=== PATIENT | female | born 1985 | race Caucasian/White ===

== ENCOUNTER 2016-07-20 09:53 | Emergency (ER) | payer OTHER ==
[~2016-07-20] VITALS: Ht 160 cm; Wt 76.7 kg
[~2016-07-20 09:53] MED LIST: ALAVERT10 MG PO; ALEVE220 M2 PO; ALEVE220 MG PO; AUGMENTIN500 MG PO; BACTRIM,SEPT1 TABLET PO; BENTYL10 MG PO; BIOFREEZE TP; CIPRO500 MG PO; CLINDAMYCIN HC300 MG PO; COLACE100 MG PO; CONSTULOSE10 GM/15 M PO; CYCLOBENZAPR TAB 10M; Ceftin PO; Cipro PO; Claritin,Alavart PO; DEPO-PROVER150 MG/ML; DEPO-PROVER150 MG/ML IM; DIFLUCAN150 MG PO; DOCUSATE SODIU100 MG PO; Diflucan PO; ELAVIL25 MG PO; ENDOCET 5-3251 EACH PO; ERYTHROMYCIN O3.5 GM LEFT EYE; FEOSOL325 MG PO; FIORICET,ESG1 TABLET PO; FLEXERIL10 MG PO; FLEXERIL5 MG PO; FLINTSTONES1 TABLET PO; Feosol PO; GABAPENTIN300 MG PO; HUMALOG (UNIT)1 UNIT SC; HUMALOG100 UNIT/1 SC; HUMULIN NP100 UNIT/1 SC; IBUPROFEN800 MG; INSULIN PUMP SCCONT; IRON325 M1 PO; KEFLEX500 MG PO; LANTUS 10100 UNITS/ SC; LANTUS 3 M100 UNITS1 SC; LORATADINE10 M2; Lantus 3 ml Solostar SC; Levaquin PO; Lopressor PO; MACROBID100 MG PO; MEDROXYPRO150 MG/1 M; MOTRIN600 MG PO; MOTRIN800 MG PO; NAPROSYN500 MG PO; NAPROXEN500 MG PO; NEURONTIN300 MG PO; NEXPLANON68 MG SC; NORCO 5/3251 TABLET PO; NOVOLIN N100 UNITS/ IM; NOVOLIN N100 UNITS/ SQ; NOVOLIN NPH,HU1 UNIT SC; NOVOLIN R100 UNIT/1 IM; NOVOLIN,HU100 UNITS1 SC; NOVOLOG 10100 UNITS/; NOVOLOG 10100 UNITS/ SC; NOVOLOG PE100 UNITS/; NOVOLOG PE100 UNITS/ SC; PEN-VEE K,VEET500 MG PO; PERCOCET 5/31 TABLET PO; PHENERGAN12.5 MG PR; PHILLIPS' LAXA100 MG PO; PREFERA-OB P1 TABLET PO; PRILOSEC40 MG PO; PROMETHAZINE HC25 M1 PO; PROTONIX40 MG PO; PROZAC20 MG PO; Percocet 5/325,Endoc PO; REGLAN10 MG PO; SENNA PLUS TAB1 EACH PO; Senokot S,Pericolace PO; TORADOL10 MG PO; TRAMADOL HCL50 MG; TRAMADOL HCL50 MG PO; TYLENOL #3; Toprol XL PO; ULTRAM50 MG PO; UNISOM SLEEP AI25 MG; UNISOM SLEEP AI25 MG PO; UNISOM25 MG PO; UNISOM50 MG PO; ZOFRAN ODT4 MG PO; ZOFRAN ODT8 MG PO; ZOFRAN4 MG PO; ZOLOFT25 MG PO
[2016-07-20] MEDS ORDERED: UNISOM50 MG PO (10:18)
[2016-07-20] MEDS ORDERED: LANTUS 3 M100 UNITS1 SC (10:18)
[2016-07-20] MEDS ORDERED: NOVOLOG PE100 UNITS/ SC (10:18)
[2016-07-20 10:35] LABS: ADD MIUA? YES; BILIRUBIN NEGATIVE; BLOOD MODERATE; COLOR YELLOW ((YELLOW)); GLUCOSE (STRIP) >=1000; KETONES NEGATIVE; LEUKOCYTES NEGATIVE; NITRITE NEGATIVE; PROTEIN (STRIP) 30; SPECIFIC GRAVITY 1.025 (1.000-1.030); UROBILINOGEN 0.2 MG/DL (0.2-1.0)
[2016-07-20 10:50] LABS: BACTERIA 1+; CASTS NONE SEEN /LPF; CRYSTALS NONE SEEN; EPITHELIAL CELLS 1+; MUCUS NONE SEEN; RED BLOOD CELLS 0-5 /HPF (0-5); UCUL ADDED? NO; WHITE BLOOD CELLS 0-5 /HPF (0-5)
[2016-07-20 11:00] LABS: EOSINOPHIL (%) 0.5 % (0-5); HEMATOCRIT 36.4 % (36.0-46.0); IMMATURE GRANULOCYTE (%) 0.2 % (0.0-0.7); IMMATURE GRANULOCYTE COUNT 0.1 K/uL; LYMPHOCYTE COUNT 1.7 K/uL (1.0-2.8); MCH 28.1 PG (29.0-34.0); MCHC 33.2 G/DL (30.0-36.0); MCV 84.5 FL (83-99); MEAN PLAT.VOLUME 11.2 uM^3 (9.5-12.4); MONOCYTE (%) 6.1 % (3-12); MONOCYTE COUNT 0.4 K/uL (0-0.8); NEUTROPHIL (%) 64.9 % (45-76); NEUTROPHIL COUNT 3.9 K/uL (1.8-6.4); PLATELET COUNT 222 K/uL (156-360); RBC DIS.WIDTH-CV 12.1 % (11.8-14.6); RBC DIS.WIDTH-SD 36.6 % (39-53); RED BLOOD COUNT 4.31 M/uL (3.80-5.20); WHITE BLOOD COUNT 6.1 K/uL (4.1-10.2)
[2016-07-20 11:07] LABS: GLUCOSE 245 mg/dL (70-99)
[2016-07-20 11:11] LABS: D-DIMER ELISA 0.36 mg/L FEU (< 0.57); GFR ESTIMATE (CALCULATED) > 59 mL/min/
[2016-07-20 11:12] LABS: UREA NITROGEN (BUN) 12 mg/dL (9-23)
[2016-07-20 11:15] LABS: CHLORIDE 107 mEq/L (99-109); POTASSIUM 3.9 mEq/L (3.7-5.4); SODIUM 136 mEq/L (136-147)
[2016-07-20 11:18] LABS: ANION GAP 10 MEQ/L (2-14); TROP-I INTERPRETATION NEGATIVE; TROPONIN-I < 0.01 ng/mL (0.0-0.30)
[2016-07-20] MEDS ORDERED: TYLENOL WITH C1 EACH PO (13:37)
[2016-07-20 13:49] VITALS: BP 113/89
== END 2016-07-20 13:54 | disposition home or self-care (01) ==
LOC: EME 09:53
PROVIDERS: Emergency Medicine
DX: R10.9 Unspecified abdominal pain (principal); R07.89 Other chest pain; M54.5 Low back pain; R11.2 Nausea with vomiting, unspecified; E11.9 Type 2 diabetes mellitus without complications; Z79.4 Long term (current) use of insulin; Z96.41 Presence of insulin pump (external) (internal); Z87.440 Personal history of urinary (tract) infections
CPT/HCPCS: 71010; 74176; 80048; 81003; 84484; 85025; 85379; 93005; 99281; 99285

== ENCOUNTER 2016-09-04 08:57 | Emergency (ER) | payer OTHER ==
[~2016-09-04] VITALS: Ht 160 cm; Wt 77.6 kg
[~2016-09-04 08:57] MED LIST changes: +TYLENOL WITH C1 EACH PO
[2016-09-04] MEDS ORDERED: FLEXERIL10 MG PO (09:47)
[2016-09-04] MEDS ORDERED: NAPROSYN500 MG PO (09:47)
[2016-09-04 10:09] VITALS: BP 136/89
== END 2016-09-04 10:10 | disposition home or self-care (01) ==
LOC: EME 08:57
DX: G56.01 Carpal tunnel syndrome, right upper limb (principal); E11.9 Type 2 diabetes mellitus without complications; Z91.040 Latex allergy status
CPT/HCPCS: 99281; 99283

== ENCOUNTER 2016-09-25 09:14 | Emergency (ER) | payer OTHER ==
[~2016-09-25] VITALS: Ht 160 cm; Wt 76.2 kg
[2016-09-25 10:27] LABS: HEMATOCRIT 35.8 % (36.0-46.0); MCH 27.9 PG (29.0-34.0); MCHC 33.5 G/DL (30.0-36.0); MCV 83.3 FL (83-99); MEAN PLAT.VOLUME 11.1 uM^3 (9.5-12.4); PLATELET COUNT 247 K/uL (156-360); RBC DIS.WIDTH-CV 11.5 % (11.8-14.6); RBC DIS.WIDTH-SD 34.7 % (39-53); WHITE BLOOD COUNT 7.4 K/uL (4.1-10.2)
[2016-09-25 10:41] LABS: CHLORIDE 104 mEq/L (99-109); POTASSIUM 4.6 mEq/L (3.7-5.4); SODIUM 134 mEq/L (136-147)
[2016-09-25 10:43] LABS: GLUCOSE 287 mg/dL (70-99)
[2016-09-25 10:44] LABS: ANION GAP 10 MEQ/L (2-14)
[2016-09-25 10:45] LABS: TOTAL BILIRUBIN 0.4 mg/dL (0.0-1.0)
[2016-09-25 10:47] LABS: ALKALINE PHOSPHATASE 89 IU/L (3-129); GFR ESTIMATE (CALCULATED) > 59 mL/min/
[2016-09-25 10:48] LABS: UREA NITROGEN (BUN) 15 mg/dL (9-23)
[2016-09-25 10:50] LABS: LIPASE 60 U/L (1.0-51.0)
[2016-09-25 10:57] LABS: QUANTITATIVE HCG < 4.0 MIU/ML
[2016-09-25] MEDS ORDERED: PERCOCET 5/31 TABLET PO (13:47)
[2016-09-25] MEDS ORDERED: ZOFRAN ODT4 MG PO (13:47)
[2016-09-25 14:08] VITALS: BP 147/91
== END 2016-09-25 14:20 | disposition home or self-care (01) ==
LOC: EME 09:14
DX: K80.20 Calculus of gallbladder without cholecystitis without obstruction (principal); E11.9 Type 2 diabetes mellitus without complications; Z87.440 Personal history of urinary (tract) infections; Z79.4 Long term (current) use of insulin
CPT/HCPCS: 76705; 80053; 81003; 83690; 84702; 85027; 93005; 99281; 99285; J2270; J2405; J3010; J7030

== ENCOUNTER 2016-09-30 17:45 | Emergency (ER) | payer OTHER ==
[~2016-09-30] VITALS: Ht 167.6 cm; Wt 77.2 kg
[2016-09-30 19:11] LABS: EOSINOPHIL (%) 0.5 % (0-5); HEMATOCRIT 36.7 % (36.0-46.0); IMMATURE GRANULOCYTE (%) 0.3 % (0.0-0.7); INSTRUMENT ABS NEUTROPHIL CT 4.1 K/uL; LYMPHOCYTE COUNT 1.8 K/uL (1.0-2.8); MCH 28.2 PG (29.0-34.0); MCHC 32.7 G/DL (30.0-36.0); MCV 86.2 FL (83-99); MEAN PLAT.VOLUME 10.5 uM^3 (9.5-12.4); MONOCYTE COUNT 0.3 K/uL (0-0.8); NEUTROPHIL (%) 65.7 % (45-76); NEUTROPHIL COUNT 4.1 K/uL (1.8-6.4); PLATELET COUNT 247 K/uL (156-360); RBC DIS.WIDTH-CV 11.9 % (11.8-14.6); RBC DIS.WIDTH-SD 37.2 % (39-53); RED BLOOD COUNT 4.26 M/uL (3.80-5.20); WHITE BLOOD COUNT 6.2 K/uL (4.1-10.2)
[2016-09-30 19:25] LABS: CHLORIDE 108 mEq/L (99-109); POTASSIUM 4.4 mEq/L (3.7-5.4); SODIUM 138 mEq/L (136-147)
[2016-09-30 19:27] LABS: GLUCOSE 120 mg/dL (70-99)
[2016-09-30 19:29] LABS: ANION GAP 10 MEQ/L (2-14)
[2016-09-30 19:30] LABS: TOTAL BILIRUBIN 0.2 mg/dL (0.0-1.0)
[2016-09-30 19:31] LABS: GFR ESTIMATE (CALCULATED) > 59 mL/min/
[2016-09-30 19:32] LABS: ALKALINE PHOSPHATASE 121 IU/L (3-129); UREA NITROGEN (BUN) 8 mg/dL (9-23)
[2016-09-30 19:41] LABS: QUANTITATIVE HCG < 4.0 MIU/ML
[2016-09-30 21:31] LABS: LIPASE 4 U/L (1.0-51.0)
[2016-09-30 21:33] LABS: ADD MIUA? YES; BILIRUBIN NEGATIVE; BLOOD MODERATE; COLOR YELLOW ((YELLOW)); GLUCOSE (STRIP) NEGATIVE; KETONES NEGATIVE; LEUKOCYTES TRACE; NITRITE NEGATIVE; PROTEIN (STRIP) 100; UROBILINOGEN 0.2 MG/DL (0.2-1.0)
[2016-09-30 22:04] LABS: BACTERIA RARE /HPF; CASTS NONE SEEN /LPF; CRYSTALS PRESENT; EPITHELIAL CELLS 2+ /HPF; MUCUS NONE SEEN /LPF; RED BLOOD CELLS NONE SEEN /HPF (0-5); WHITE BLOOD CELLS 0-5 /HPF (0-5)
[2016-09-30 22:05] LABS: AMORPHOUS PHOSPHATE CRYSTALS 2+
[2016-09-30] MEDS ORDERED: PERCOCET 5/31 TABLET PO (22:13)
[2016-09-30] MEDS ORDERED: ZOFRAN ODT8 MG PO (22:13)
[2016-09-30 22:31] VITALS: BP 124/85
[2016-10-01] MEDS ORDERED: HUMALOG100 UNIT/2 SC (15:09)
[2016-10-01] MEDS ORDERED: POLYETHYLENE GL17 GM PO (20:28)
[2016-10-01] MEDS ORDERED: MEDROXYPRO150 MG/1 M IM (20:28)
== END 2016-09-30 22:33 | disposition home or self-care (01) ==
LOC: EME 17:45
PROVIDERS: Physician Assistant
DX: R10.11 Right upper quadrant pain (principal); E11.9 Type 2 diabetes mellitus without complications; K21.9 Gastro-esophageal reflux disease without esophagitis; Z87.440 Personal history of urinary (tract) infections; Z79.4 Long term (current) use of insulin
CPT/HCPCS: 80053; 81003; 83690; 84702; 85025; 99281; 99284; J1885; J2270; J2405

== ENCOUNTER 2016-10-01 14:35 | Inpatient (IN) | payer OTHER ==
[~2016-10-01] VITALS: Ht 160 cm; Wt 77.2 kg
[2016-10-01] MEDS ORDERED: HUMALOG100 UNIT/2 SC (15:09)
[2016-10-01 16:50] LABS: EOSINOPHIL (%) 0.8 % (0-5); EOSINOPHIL COUNT 0.1 K/uL (0-0.3); HEMATOCRIT 32.7 % (36.0-46.0); IMMATURE GRANULOCYTE (%) 0.3 % (0.0-0.7); INSTRUMENT ABS NEUTROPHIL CT 4.1 K/uL; LYMPHOCYTE COUNT 1.9 K/uL (1.0-2.8); MCH 28.1 PG (29.0-34.0); MCHC 32.4 G/DL (30.0-36.0); MCV 86.7 FL (83-99); MEAN PLAT.VOLUME 10.6 uM^3 (9.5-12.4); MONOCYTE (%) 5.9 % (3-12); MONOCYTE COUNT 0.4 K/uL (0-0.8); NEUTROPHIL (%) 63.4 % (45-76); NEUTROPHIL COUNT 4.1 K/uL (1.8-6.4); PLATELET COUNT 243 K/uL (156-360); RBC DIS.WIDTH-CV 11.9 % (11.8-14.6); RBC DIS.WIDTH-SD 38.2 % (39-53); RED BLOOD COUNT 3.77 M/uL (3.80-5.20); WHITE BLOOD COUNT 6.5 K/uL (4.1-10.2)
[2016-10-01 17:02] LABS: CHLORIDE 108 mEq/L (99-109); POTASSIUM 4.4 mEq/L (3.7-5.4); SODIUM 139 mEq/L (136-147)
[2016-10-01 17:04] LABS: GLUCOSE 123 mg/dL (70-99)
[2016-10-01 17:05] LABS: ANION GAP 8 MEQ/L (2-14)
[2016-10-01 17:06] LABS: TOTAL BILIRUBIN 0.2 mg/dL (0.0-1.0)
[2016-10-01 17:08] LABS: GFR ESTIMATE (CALCULATED) > 59 mL/min/
[2016-10-01 17:09] LABS: UREA NITROGEN (BUN) 15 mg/dL (9-23)
[2016-10-01 17:11] LABS: LIPASE 6 U/L (1.0-51.0)
[2016-10-01 17:17] LABS: ALKALINE PHOSPHATASE 183 IU/L (3-129)
[2016-10-01 19:16] LABS: ADD MIUA? YES; BILIRUBIN NEGATIVE; BLOOD MODERATE; COLOR YELLOW ((YELLOW)); GLUCOSE (STRIP) 150; KETONES NEGATIVE; LEUKOCYTES NEGATIVE; NITRITE NEGATIVE; PROTEIN (STRIP) 30; SPECIFIC GRAVITY 1.021 (1.000-1.030); UROBILINOGEN 0.2 MG/DL (0.2-1.0)
[2016-10-01 19:28] LABS: BACTERIA NONE SEEN /HPF; CASTS NONE SEEN /LPF; CRYSTALS NONE SEEN; EPITHELIAL CELLS 1+ /HPF; HYALINE CASTS 20-30 /LPF; MUCUS 1+ /LPF
[2016-10-01] MEDS ORDERED: MEDROXYPRO150 MG/1 M IM (20:28)
[2016-10-01] MEDS ORDERED: POLYETHYLENE GL17 GM PO (20:28)
[2016-10-01 22:58] LABS: QUANTITATIVE HCG < 4.0 MIU/ML
[2016-10-01 23:36] VITALS: BP 165/91
[2016-10-02 00:15] LABS: POINT-OF-CARE METER ID UU13113700
[2016-10-02 01:15] VITALS: BP 132/68
[2016-10-02 01:56] LABS: HEMATOCRIT 30.4 % (36.0-46.0); MCV 87.6 FL (83-99)
[2016-10-02 03:10] LABS: POINT-OF-CARE METER ID UU13113700
[2016-10-02 06:52] LABS: POINT-OF-CARE METER ID UU14162513
[2016-10-02 07:02] LABS: EOSINOPHIL (%) 1.1 % (0-5); EOSINOPHIL COUNT 0.1 K/uL (0-0.3); HEMATOCRIT 30.9 % (36.0-46.0); IMMATURE GRANULOCYTE (%) 0.2 % (0.0-0.7); INSTRUMENT ABS NEUTROPHIL CT 3.7 K/uL; LYMPHOCYTE COUNT 1.3 K/uL (1.0-2.8); MCH 28.6 PG (29.0-34.0); MCHC 32.7 G/DL (30.0-36.0); MCV 87.5 FL (83-99); MONOCYTE (%) 5.9 % (3-12); MONOCYTE COUNT 0.3 K/uL (0-0.8); NEUTROPHIL COUNT 3.7 K/uL (1.8-6.4); NRBC (%) 1.3 /100 WBC (0-0); RBC DIS.WIDTH-SD 38.5 % (39-53); RED BLOOD COUNT 3.53 M/uL (3.80-5.20); WHITE BLOOD COUNT 5.5 K/uL (4.1-10.2)
[2016-10-02 07:24] LABS: ALKALINE PHOSPHATASE 138 IU/L (3-129); ANION GAP 7 MEQ/L (2-14); CHLORIDE 111 MEQ/L (99-109); GFR ESTIMATE (CALCULATED) > 59 mL/min/; GLUCOSE 94 mg/dL (70-99); POTASSIUM 4.5 MEQ/L (3.7-5.4); SAMPLE HEMOLYSIS CHECK 1; SAMPLE ICTERIC CHECK 0; SAMPLE LIPEMIA CHECK 0; SODIUM 139 MEQ/L (136-147); TOTAL BILIRUBIN 0.3 MG/DL (0.0-1.0); UREA NITROGEN (BUN) 7 mg/dL (9-23)
[2016-10-02 08:00] VITALS: BP 143/81
[2016-10-02 08:12] LABS: MEAN PLAT.VOLUME 11.2 uM^3 (9.5-12.4); PLAT.SUFFICIENCY ADEQUATE; PLATELET COUNT 251 K/uL (156-360)
[2016-10-02 12:26] LABS: POINT-OF-CARE METER ID UU13113700
[2016-10-02 17:45] LABS: POINT-OF-CARE METER ID UU13113831
[2016-10-02 20:00] VITALS: BP 141/78
[2016-10-02 22:02] LABS: POINT-OF-CARE METER ID UU14162513
[2016-10-03] VITALS (8 sets, daily range): BP systolic 133–160; BP diastolic 65–87
[2016-10-03 08:17] LABS: POINT-OF-CARE METER ID UU13113700
[2016-10-03 10:05] LABS: HEMATOCRIT 34.9 % (36.0-46.0); MCH 28.2 PG (29.0-34.0); MCHC 32.7 G/DL (30.0-36.0); MCV 86.4 FL (83-99); MEAN PLAT.VOLUME 10.7 uM^3 (9.5-12.4); PLATELET COUNT 251 K/uL (156-360); RBC DIS.WIDTH-CV 11.7 % (11.8-14.6); RBC DIS.WIDTH-SD 37.3 % (39-53); RED BLOOD COUNT 4.04 M/uL (3.80-5.20)
[2016-10-03 10:53] LABS: ALKALINE PHOSPHATASE 132 IU/L (3-129); ANION GAP 15 MEQ/L (2-14); CHLORIDE 106 MEQ/L (99-109); GFR ESTIMATE (CALCULATED) > 59 mL/min/; GLUCOSE 97 mg/dL (70-99); POTASSIUM 4.3 MEQ/L (3.7-5.4); SAMPLE HEMOLYSIS CHECK 0; SAMPLE ICTERIC CHECK 0; SAMPLE LIPEMIA CHECK 0; SODIUM 141 MEQ/L (136-147); UREA NITROGEN (BUN) 9 mg/dL (9-23)
[2016-10-03 10:55] LABS: TOTAL BILIRUBIN 0.5 MG/DL (0.0-1.0)
[2016-10-03 13:57] LABS: POINT-OF-CARE METER ID UU14162513
[2016-10-03 22:46] LABS: POINT-OF-CARE METER ID UU14188577
[2016-10-04] VITALS (7 sets, daily range): BP systolic 118–169; BP diastolic 71–89
[2016-10-04 09:25] LABS: HEMATOCRIT 33.7 % (36.0-46.0); MCH 28.1 PG (29.0-34.0); MCHC 32.6 G/DL (30.0-36.0); MEAN PLAT.VOLUME 10.6 uM^3 (9.5-12.4); PLATELET COUNT 289 K/uL (156-360); RBC DIS.WIDTH-CV 11.8 % (11.8-14.6); RBC DIS.WIDTH-SD 36.8 % (39-53); RED BLOOD COUNT 3.92 M/uL (3.80-5.20); WHITE BLOOD COUNT 6.8 K/uL (4.1-10.2)
[2016-10-04 09:50] LABS: ALKALINE PHOSPHATASE 126 IU/L (3-129); ANION GAP 14 MEQ/L (2-14); CHLORIDE 107 MEQ/L (99-109); GFR ESTIMATE (CALCULATED) > 59 mL/min/; GLUCOSE 216 mg/dL (70-99); POTASSIUM 4.1 MEQ/L (3.7-5.4); SAMPLE HEMOLYSIS CHECK 0; SAMPLE ICTERIC CHECK 0; SAMPLE LIPEMIA CHECK 0; SODIUM 137 MEQ/L (136-147); TOTAL BILIRUBIN 0.5 MG/DL (0.0-1.0); UREA NITROGEN (BUN) 12 mg/dL (9-23)
[2016-10-04 12:06] LABS: POINT-OF-CARE METER ID UU14188577
[2016-10-04 16:05] LABS: ANION GAP 13 MEQ/L (2-14); CHLORIDE 104 MEQ/L (99-109); GFR ESTIMATE (CALCULATED) > 59 mL/min/; GLUCOSE 210 mg/dL (70-99); POTASSIUM 4.9 MEQ/L (3.7-5.4); SAMPLE HEMOLYSIS CHECK 1; SAMPLE ICTERIC CHECK 0; SAMPLE LIPEMIA CHECK 0; SODIUM 133 MEQ/L (136-147); UREA NITROGEN (BUN) 11 mg/dL (9-23)
[2016-10-04 17:01] LABS: POINT-OF-CARE METER ID UU14149397
[2016-10-05 07:46] VITALS: BP 117/68
[2016-10-05 08:59] LABS: HEMATOCRIT 34.9 % (36.0-46.0); MCH 27.9 PG (29.0-34.0); MCHC 32.7 G/DL (30.0-36.0); MCV 85.3 FL (83-99); MEAN PLAT.VOLUME 10.2 uM^3 (9.5-12.4); PLATELET COUNT 256 K/uL (156-360); RBC DIS.WIDTH-CV 11.9 % (11.8-14.6); RBC DIS.WIDTH-SD 36.6 % (39-53); RED BLOOD COUNT 4.09 M/uL (3.80-5.20); WHITE BLOOD COUNT 6.7 K/uL (4.1-10.2)
[2016-10-05 09:16] LABS: ALKALINE PHOSPHATASE 120 IU/L (3-129); ANION GAP 10 MEQ/L (2-14); CHLORIDE 107 MEQ/L (99-109); GFR ESTIMATE (CALCULATED) > 59 mL/min/; SAMPLE HEMOLYSIS CHECK 0; SAMPLE ICTERIC CHECK 0; SAMPLE LIPEMIA CHECK 0; SODIUM 139 MEQ/L (136-147); UREA NITROGEN (BUN) 13 mg/dL (9-23)
[2016-10-05 09:21] LABS: GLUCOSE 120 mg/dL (70-99); TOTAL BILIRUBIN 0.3 MG/DL (0.0-1.0)
[2016-10-05] MEDS ORDERED: PROTONIX40 MG PO (13:10)
== END 2016-10-05 14:18 | disposition home or self-care (01) | DRG 392 ==
LOC: EME 14:35 → EDOF 22:07 → 5WEST 22:07 → EDOF 22:07 → 5WEST 23:23 → 3EAST 10-03 18:09
PROVIDERS: Hospitalist; Internal Medicine; Internal Medicine Gastroenterology; Nurse Practitioner Family
PROC: 0DB68ZX Excision of Stomach, Via Natural or Artificial Opening Endoscopic, Diagnostic (ICD-10-PCS; principal; 2016-10-02)
DX: K29.70 Gastritis, unspecified, without bleeding (principal); K92.0 Hematemesis; N39.0 Urinary tract infection, site not specified; K25.9 Gastric ulcer, unspecified as acute or chronic, without hemorrhage or perforation; K26.9 Duodenal ulcer, unspecified as acute or chronic, without hemorrhage or perforation; D64.9 Anemia, unspecified; K80.20 Calculus of gallbladder without cholecystitis without obstruction; K59.00 Constipation, unspecified; E10.40 Type 1 diabetes mellitus with diabetic neuropathy, unspecified; K21.9 Gastro-esophageal reflux disease without esophagitis; E66.9 Obesity, unspecified; Z68.30 Body mass index [BMI] 30.0-30.9, adult; Z91.040 Latex allergy status
CPT/HCPCS: 74177; 76705; 78227; 80048 91; 80053; 81003; 82272; 82948; 83690; 84702; 85014; 85018; 85025; 85027; 88305; 88342 TC; 99281; 99285; A9510; C9113; G0378; J0692; J1170; J1815; J2405; J2765; J2805; J3010; J7030; J7040; J7050

== ENCOUNTER 2016-12-31 18:28 | Emergency (ER) | payer OTHER ==
[~2016-12-31] VITALS: Ht 160 cm; Wt 79.4 kg
[~2016-12-31 18:28] MED LIST changes: +HUMALOG100 UNIT/2 SC; +MEDROXYPRO150 MG/1 M IM; +POLYETHYLENE GL17 GM PO
[2016-12-31] MEDS ORDERED: NAPROXEN500 MG PO (19:20)
[2016-12-31 19:41] VITALS: BP 162/89
== END 2016-12-31 19:42 | disposition home or self-care (01) ==
LOC: EME 18:28
DX: S83.92XA Sprain of unspecified site of left knee, initial encounter (principal); X50.0XXA Overexertion from strenuous movement or load, initial encounter
CPT/HCPCS: 73564; 99281; 99283

== ENCOUNTER 2017-03-03 18:16 | Emergency (ER) | payer OTHER ==
[~2017-03-03] VITALS: Ht 160 cm; Wt 76.8 kg
[2017-03-03 19:11] LABS: ADD MIUA? YES; BILIRUBIN NEGATIVE; BLOOD MODERATE; COLOR STRAW ((YELLOW)); GLUCOSE (STRIP) >=500; KETONES NEGATIVE; LEUKOCYTES NEGATIVE; NITRITE NEGATIVE; PROTEIN (STRIP) NEGATIVE; SPECIFIC GRAVITY 1.018 (1.000-1.030); UROBILINOGEN 0.2 MG/DL (0.2-1.0)
[2017-03-03 19:14] LABS: INTERNAL CONTROL VALID? YES
[2017-03-03 19:19] LABS: BACTERIA NONE SEEN /HPF; EPITHELIAL CELLS RARE /HPF; MUCUS NONE SEEN /LPF; RED BLOOD CELLS 0-5 /HPF (0-5); UCUL ADDED? NO; WHITE BLOOD CELLS 0-5 /HPF (0-5)
[2017-03-03 19:30] LABS: EOSINOPHIL (%) 0.8 % (0-5); EOSINOPHIL COUNT 0.1 K/uL (0-0.3); HEMATOCRIT 33.7 % (36.0-46.0); IMMATURE GRANULOCYTE (%) 0.6 % (0.0-0.7); LYMPHOCYTE COUNT 1.8 K/uL (1.0-2.8); MCH 28.2 PG (29.0-34.0); MCHC 33.5 G/DL (30.0-36.0); MONOCYTE (%) 4.7 % (3-12); MONOCYTE COUNT 0.3 K/uL (0-0.8); NEUTROPHIL (%) 64.1 % (45-76); RBC DIS.WIDTH-CV 11.5 % (11.8-14.6); RBC DIS.WIDTH-SD 35.5 % (39-53); RED BLOOD COUNT 4.01 M/uL (3.80-5.20); WHITE BLOOD COUNT 6.2 K/uL (4.1-10.2)
[2017-03-03 19:46] LABS: CHLORIDE 105 mEq/L (99-109); SODIUM 136 mEq/L (136-147)
[2017-03-03 19:48] LABS: GLUCOSE 374 mg/dL (70-99)
[2017-03-03 19:49] LABS: ANION GAP 9 MEQ/L (2-14)
[2017-03-03 19:50] LABS: TOTAL BILIRUBIN 0.2 mg/dL (0.0-1.0)
[2017-03-03 19:52] LABS: ALKALINE PHOSPHATASE 86 IU/L (3-129); GFR ESTIMATE (CALCULATED) > 59 mL/min/
[2017-03-03 19:53] LABS: UREA NITROGEN (BUN) 13 mg/dL (9-23)
[2017-03-03] MEDS ORDERED: ZOFRAN ODT4 MG PO (19:57)
[2017-03-03 20:07] LABS: POINT-OF-CARE METER ID UU13113800
[2017-03-03 20:18] LABS: MEAN PLAT.VOLUME 11.5 uM^3 (9.5-12.4); PLATELET COUNT 185 K/uL (156-360)
[2017-03-03 20:19] LABS: PLAT.SUFFICIENCY ADEQUATE
[2017-03-03 20:23] VITALS: BP 162/99
== END 2017-03-03 20:30 | disposition home or self-care (01) ==
LOC: EME 18:16
PROVIDERS: Physician Assistant Medical
DX: E11.65 Type 2 diabetes mellitus with hyperglycemia (principal); R11.0 Nausea; R10.9 Unspecified abdominal pain; Z87.440 Personal history of urinary (tract) infections; K21.9 Gastro-esophageal reflux disease without esophagitis; Z79.4 Long term (current) use of insulin
CPT/HCPCS: 80053; 81003; 82948; 84703; 85025; 99281; 99284; J1885; J2405; J7030

== ENCOUNTER 2017-04-26 12:29 | Emergency (ER) | payer OTHER ==
[~2017-04-26] VITALS: Ht 160 cm; Wt 74.5 kg
[2017-04-26] MEDS ORDERED: MOBIC7.5 MG PO (15:10)
[2017-04-26 15:17] VITALS: BP 149/78
== END 2017-04-26 15:18 | disposition home or self-care (01) ==
LOC: EME 12:29
DX: M79.601 Pain in right arm (principal); E11.9 Type 2 diabetes mellitus without complications; Z79.4 Long term (current) use of insulin; Z91.040 Latex allergy status
CPT/HCPCS: 73060; 99281; 99284; J1885

== ENCOUNTER 2017-07-14 19:02 | Observation (INO) | payer OTHER ==
[~2017-07-14] VITALS: Ht 160 cm; Wt 77.5 kg
[~2017-07-14 19:02] MED LIST changes: +MOBIC7.5 MG PO
[2017-07-14 20:20] LABS: HEMATOCRIT 33.3 % (36.0-46.0); HEMOGLOBIN 11.2 G/DL (11.9-15.5); MCH 28.7 PG (29.0-34.0); MCHC 33.6 G/DL (30.0-36.0); MCV 85.4 FL (83-99); PLATELET COUNT 227 K/uL (156-360); RBC DIS.WIDTH-CV 11.9 % (11.8-14.6); RBC DIS.WIDTH-SD 36.7 % (39-53); WHITE BLOOD COUNT 7.4 K/uL (4.1-10.2)
[2017-07-14 20:35] LABS: ALBUMIN 3.9 g/dL (3.2-4.8); CHLORIDE 106 mEq/L (99-109); POTASSIUM 4.2 mEq/L (3.7-5.4); SODIUM 136 mEq/L (136-147)
[2017-07-14 20:38] LABS: GLUCOSE 244 mg/dL (70-99); TOTAL PROTEIN 6.6 g/dL (6.4-8.3)
[2017-07-14 20:40] LABS: TOTAL BILIRUBIN 0.2 mg/dL (0.0-1.0)
[2017-07-14 20:41] LABS: ALKALINE PHOSPHATASE 74 IU/L (3-129); GFR ESTIMATE (CALCULATED) > 59 mL/min/
[2017-07-14 20:42] LABS: UREA NITROGEN (BUN) 15 mg/dL (9-23)
[2017-07-14 20:43] LABS: AST (GOT) 18 IU/L (2-34)
[2017-07-14 20:44] LABS: ALT (GPT) 14 IU/L (3-49)
[2017-07-14 20:45] LABS: LIPASE 242 U/L (1.0-51.0)
[2017-07-14 23:53] LABS: APPEARANCE CLEAR ((CLEAR)); BILIRUBIN NEGATIVE; BLOOD MODERATE; COLOR YELLOW ((YELLOW)); GLUCOSE (STRIP) >=500; KETONES 20; LEUKOCYTES NEGATIVE; NITRITE NEGATIVE; PROTEIN (STRIP) 30; SPECIFIC GRAVITY 1.012 (1.000-1.030); UROBILINOGEN 0.2 MG/DL (0.2-1.0)
[2017-07-15 00:09] LABS: BACTERIA RARE /HPF; EPITHELIAL CELLS RARE /HPF; MUCUS TRACE /LPF; UCUL ADDED? NO; WHITE BLOOD CELLS 0-5 /HPF (0-5)
[2017-07-15] MEDS ORDERED: METHOCARBAMOL500 MG PO (01:35)
[2017-07-15] MEDS ORDERED: HUMALOG100 UNIT/1 SC (01:36)
[2017-07-15] MEDS ORDERED: MELOXICAM15 MG PO (01:36)
[2017-07-15] MEDS ORDERED: LANTUS 10100 UNITS/ SC (01:39)
[2017-07-15 02:22] LABS: CARBON DIOXIDE (BICARBONATE) 26.8 MEQ/L (20-31)
[2017-07-15 02:31] LABS: ALBUMIN 3.3 g/dL (3.2-4.8); CHLORIDE 111 mEq/L (99-109); POTASSIUM 3.8 mEq/L (3.7-5.4); SODIUM 136 mEq/L (136-147)
[2017-07-15 02:33] LABS: GLUCOSE 170 mg/dL (70-99)
[2017-07-15 02:35] LABS: TOTAL BILIRUBIN 0.2 mg/dL (0.0-1.0)
[2017-07-15 02:37] LABS: ALKALINE PHOSPHATASE 60 IU/L (3-129); CREATININE 0.9 mg/dL (0.6-1.3); GFR ESTIMATE (CALCULATED) > 59 mL/min/
[2017-07-15 02:38] LABS: UREA NITROGEN (BUN) 12 mg/dL (9-23)
[2017-07-15 02:39] LABS: AST (GOT) 14 IU/L (2-34)
[2017-07-15 02:40] LABS: ALT (GPT) 12 IU/L (3-49)
[2017-07-15 02:45] LABS: TOTAL PROTEIN 5.6 g/dL (6.4-8.3)
[2017-07-15 03:59] VITALS: BP 134/74
[2017-07-15 08:12] VITALS: BP 124/65
[2017-07-15 11:53] VITALS: BP 125/75
[2017-07-15 15:04] VITALS: BP 133/82
[2017-07-15] MEDS ORDERED: AMOX TR-K CLV1 EAC4 PO (16:02)
[2017-07-15] MEDS ORDERED: ZOFRAN ODT4 MG PO (16:03)
[2017-07-15] MEDS ORDERED: BENTYL10 MG PO (16:04)
== END 2017-07-15 17:26 | disposition home or self-care (01) ==
LOC: EME 19:02 → RME 19:02 → EDOF 07-15 01:45 → ENRESERV 07-15 01:47 → 5WEST 07-15 03:01
PROVIDERS: Hospitalist; Physician Assistant; Physician Assistant Medical
DX: R10.13 Epigastric pain (principal); K81.1 Chronic cholecystitis; Z87.11 Personal history of peptic ulcer disease; Z87.19 Personal history of other diseases of the digestive system; E10.40 Type 1 diabetes mellitus with diabetic neuropathy, unspecified; E10.65 Type 1 diabetes mellitus with hyperglycemia; K04.7 Periapical abscess without sinus; Z87.440 Personal history of urinary (tract) infections; Z79.4 Long term (current) use of insulin; Z82.5 Family history of asthma and other chronic lower respiratory diseases; Z91.040 Latex allergy status; Z91.018 Allergy to other foods
CPT/HCPCS: 74176; 78226; 80053; 81003; 82010; 82803; 82948; 83605; 83690; 85027; 99281; 99285; A9510; C9113; G0378; J1200; J1644; J1885; J2270; J2405; J2805; J7030; S0028

== ENCOUNTER 2017-08-04 17:22 | Emergency (ER) | payer OTHER ==
[~2017-08-04] VITALS: Ht 160 cm; Wt 75.5 kg
[~2017-08-04 17:22] MED LIST changes: +AMOX TR-K CLV1 EAC4 PO; +MELOXICAM15 MG PO; +METHOCARBAMOL500 MG PO
[2017-08-04] MEDS ORDERED: NAPROSYN500 MG PO (17:58)
[2017-08-04] MEDS ORDERED: FLEXERIL10 MG PO (17:58)
[2017-08-04 18:12] VITALS: BP 141/91
== END 2017-08-04 18:14 | disposition home or self-care (01) ==
LOC: EME 17:22
PROC: 3E023BZ Introduction of Anesthetic Agent into Muscle, Percutaneous Approach (ICD-10-PCS; principal; 2017-08-04)
DX: M54.2 Cervicalgia (principal); M25.511 Pain in right shoulder; M62.830 Muscle spasm of back; E11.9 Type 2 diabetes mellitus without complications; Z79.4 Long term (current) use of insulin; Z87.440 Personal history of urinary (tract) infections
CPT/HCPCS: 99281; 99284; J1885; S0020

== ENCOUNTER 2017-10-13 02:55 | Emergency (ER) | payer OTHER ==
[~2017-10-13] VITALS: Ht 160 cm; Wt 74.5 kg
[2017-10-13 03:26] LABS: HEMATOCRIT 33.8 % (36.0-46.0); HEMOGLOBIN 11.5 G/DL (11.9-15.5); MCV 85.4 FL (83-99); PLATELET COUNT 255 K/uL (156-360); RBC DIS.WIDTH-CV 12.2 % (11.8-14.6); RBC DIS.WIDTH-SD 38.3 % (39-53); RED BLOOD COUNT 3.96 M/uL (3.80-5.20); WHITE BLOOD COUNT 6.1 K/uL (4.1-10.2)
[2017-10-13 03:36] LABS: ALBUMIN 3.9 g/dL (3.2-4.8); CHLORIDE 104 mEq/L (99-109); POTASSIUM 3.7 mEq/L (3.7-5.4); SODIUM 140 mEq/L (136-147)
[2017-10-13 03:39] LABS: GLUCOSE 117 mg/dL (70-99); TOTAL PROTEIN 6.4 g/dL (6.4-8.3)
[2017-10-13 03:41] LABS: TOTAL BILIRUBIN 0.1 mg/dL (0.0-1.0)
[2017-10-13 03:42] LABS: ALKALINE PHOSPHATASE 81 IU/L (3-129); CREATININE 0.9 mg/dL (0.6-1.3); GFR ESTIMATE (CALCULATED) > 59 mL/min/
[2017-10-13 03:43] LABS: UREA NITROGEN (BUN) 22 mg/dL (9-23)
[2017-10-13 03:44] LABS: AST (GOT) 15 IU/L (2-34)
[2017-10-13 03:45] LABS: ALT (GPT) 14 IU/L (3-49)
[2017-10-13 03:53] LABS: QUANTITATIVE HCG < 4.0 MIU/ML
[2017-10-13 04:33] LABS: LIPASE 22 U/L (1.0-51.0)
[2017-10-13 06:12] LABS: APPEARANCE CLEAR ((CLEAR)); BILIRUBIN NEGATIVE; BLOOD LARGE; COLOR STRAW ((YELLOW)); GLUCOSE (STRIP) 150; KETONES NEGATIVE; LEUKOCYTES NEGATIVE; NITRITE NEGATIVE; PROTEIN (STRIP) 30; SPECIFIC GRAVITY 1.013 (1.000-1.030); UROBILINOGEN 0.2 MG/DL (0.2-1.0)
[2017-10-13 06:15] LABS: BACTERIA RARE /HPF; EPITHELIAL CELLS RARE /HPF; HYALINE CASTS 0-5 /LPF; MUCUS TRACE /LPF; RED BLOOD CELLS 0-5 /HPF (0-5); UCUL ADDED? NO; WHITE BLOOD CELLS 0-5 /HPF (0-5)
[2017-10-13] MEDS ORDERED: ULTRAM50 MG PO (06:23)
[2017-10-13 06:28] VITALS: BP 162/98
== END 2017-10-13 06:33 | disposition home or self-care (01) ==
LOC: EME 02:55
DX: R10.11 Right upper quadrant pain (principal); E11.9 Type 2 diabetes mellitus without complications; Z79.4 Long term (current) use of insulin; I10 Essential (primary) hypertension; Z87.442 Personal history of urinary calculi; K21.9 Gastro-esophageal reflux disease without esophagitis; F32.9 Major depressive disorder, single episode, unspecified; Z87.440 Personal history of urinary (tract) infections; Z91.040 Latex allergy status
CPT/HCPCS: 80053; 81003; 83690; 84702; 85027; 93005; 99281; 99284

== ENCOUNTER 2018-01-04 18:20 | Emergency (ER) | payer OTHER ==
[~2018-01-04] VITALS: Ht 160 cm; Wt 73.6 kg
[2018-01-04 18:54] LABS: HEMATOCRIT 32.9 % (36.0-46.0); HEMOGLOBIN 11.2 G/DL (11.9-15.5); MCV 85.2 FL (83-99); RBC DIS.WIDTH-CV 11.6 % (11.8-14.6); RBC DIS.WIDTH-SD 35.7 % (39-53); RED BLOOD COUNT 3.86 M/uL (3.80-5.20); WHITE BLOOD COUNT 6.3 K/uL (4.1-10.2)
[2018-01-04 18:56] LABS: APPEARANCE CLEAR ((CLEAR)); BILIRUBIN NEGATIVE; BLOOD SMALL; COLOR STRAW ((YELLOW)); GLUCOSE (STRIP) >=500; KETONES NEGATIVE; LEUKOCYTES TRACE; NITRITE NEGATIVE; PROTEIN (STRIP) 30; UROBILINOGEN 0.2 MG/DL (0.2-1.0)
[2018-01-04 19:00] LABS: BACTERIA NONE SEEN /HPF; EPITHELIAL CELLS 1+ /HPF; MUCUS TRACE /LPF; RED BLOOD CELLS 0-5 /HPF (0-5); UCUL ADDED? NO; WHITE BLOOD CELLS 0-5 /HPF (0-5)
[2018-01-04 19:19] LABS: ALBUMIN 3.7 g/dL (3.2-4.8)
[2018-01-04 19:20] LABS: CHLORIDE 107 mEq/L (99-109); POTASSIUM 4.4 mEq/L (3.7-5.4); SODIUM 133 mEq/L (136-147)
[2018-01-04 19:22] LABS: TOTAL PROTEIN 5.9 g/dL (6.4-8.3)
[2018-01-04 19:24] LABS: TOTAL BILIRUBIN 0.2 mg/dL (0.0-1.0)
[2018-01-04 19:25] LABS: ALKALINE PHOSPHATASE 95 IU/L (3-129); GFR ESTIMATE (CALCULATED) > 59 mL/min/
[2018-01-04 19:27] LABS: AST (GOT) 13 IU/L (2-34); UREA NITROGEN (BUN) 14 mg/dL (9-23)
[2018-01-04 19:28] LABS: ALT (GPT) 12 IU/L (3-49)
[2018-01-04 19:33] LABS: PLAT.SUFFICIENCY ADEQUATE
[2018-01-04 19:37] LABS: QUANTITATIVE HCG < 4.0 MIU/ML
[2018-01-04 19:39] LABS: PLATELET COUNT 78 K/uL (156-360)
[2018-01-04 19:50] LABS: GLUCOSE 469 mg/dL (70-99)
[2018-01-04] MEDS ORDERED: KEFLEX500 MG PO (21:18)
[2018-01-04 21:29] VITALS: BP 145/89
== END 2018-01-04 21:29 | disposition home or self-care (01) ==
LOC: RME 18:20 → EME 18:20 → RME 21:29
PROVIDERS: Physician Assistant Medical
DX: N20.0 Calculus of kidney (principal); R31.9 Hematuria, unspecified; E11.65 Type 2 diabetes mellitus with hyperglycemia; I10 Essential (primary) hypertension; K21.9 Gastro-esophageal reflux disease without esophagitis; Z79.4 Long term (current) use of insulin
CPT/HCPCS: 74176; 80053; 81003; 82948; 84702; 85027; 99281; 99284; J1815; J1885